=== PATIENT | male | born 1955 | race Caucasian/White ===

== ENCOUNTER 2020-06-26 15:39 | Inpatient (IN) | payer OTHER ==
[2020-06-26] VITALS (22 sets, daily range): BP systolic 46–132; BP diastolic 14–91
[~2020-06-26] VITALS: Ht 180.3 cm; Wt 108.8 kg
--- NOTE | ~2020-06-26 | HC ---
[facility] [place] [address] CONSULTATION Name: ASH DENISE Room #: 218-P ADM IN M.R.#: [id number] Admission: 06/26/20 Attend Phys: Bonifacio Yancey MD Discharge: Date of : 55 Report #: [id number] THIS REPORT FOR: cc: John Hernandez MD, Richard C. MD Al-Absi,Carmen Baig MD ~ DOC #: [id number] Carmen Nath MD DATE OF SERVICE: 06/28/2020 REASON FOR CONSULTATION: Elevated creatinine. REASON FOR PRESENTATION: Shortness of breath. HISTORY OF PRESENT ILLNESS: This is a 64-year-old who has not seen a physician for the last 10 years. He presented to another facility with worsening lower extremity edema, shortness of breath. The patient was found to have AFib with RVR. He was transferred to our facility for further evaluation and management. The patient's laboratory values on 06/26 showed a creatinine of 1.3. The patient received a CT thorax angiogram on 06/27. Creatinine started to go up from 1.3-1.9-2.3. He was found to have a severely reduced ejection fraction. I was consulted to manage his acute kidney injury. PAST MEDICAL HISTORY: He denies any prior medical issues; however, he did not see a doctor for 10 years. PAST SURGICAL HISTORY: Tonsillectomy. FAMILY HISTORY: None per the patient. ALLERGEN: RAGWEED AND CUMIN. MEDICATIONS: None except for occasional Aleve and Advil. REVIEW OF SYSTEMS: GENERAL: No fever or chills. CARDIOVASCULAR: Occasional dyspnea on exertion and lower extremity edema. PULMONARY: No cough, no hemoptysis. GASTROINTESTINAL: No nausea or vomiting. GENITOURINARY: No frequency, no urgency. NEUROLOGICAL: No headache, no dizziness. MUSCULOSKELETAL: Occasional back pain. PHYSICAL EXAMINATION: VITAL SIGNS: Temperature 36.2, pulse rate 71, respiratory rate 18, blood pressure 116/87. [facility] [address] [place] [address] CONSULTATION Name: ASH DENISE Room #: 218-P [facility] IN .R.#: [id number] Admission: 06/26/20 Attend Phys: Bonifacio Yancey MD Discharge: Date of : 55 Report #: [id number] HEAD AND NECK: No jugular venous distention. CHEST: Decreased air entry bilaterally. CARDIOVASCULAR: No rub. ABDOMEN: Soft. EXTREMITIES: Lower extremities, +3 edema. LABORATORY VALUES: White blood cell count 11.8. Sodium 132, BUN is 53, creatinine is 2.3. Troponin is mildly elevated to 0.4. He has a English catheter. ASSESSMENT, IMPRESSION, PLAN: 1. Acute kidney injury in a patient with severe left ventricular dysfunction with cardiomyopathy. Status post CT angiogram. 2. At this point, the patient's creatinine is worsening due to the CT angiogram. I would hold on the cardiac catheterization until his creatinine stabilizes. 3. Given the development of hyponatremia, stop IV fluid. 4. Daily renal function panel. 5. Continue to follow urine output and daily electrolytes. 6. Avoid nephrotoxins. 7. Once his creatinine stabilizes, we might be able to proceed with the cardiac catheterization. 8. At this point, I would not initiate the patient on any angiotensin receptor carlos or angiotensin converting enzyme inhibitors or Aldactone for his heart failure given his acute kidney injury. Carmen Nath MD AIA/TUSHAR/ERNST By: 2134 Carmen Nath MD /nt
--- NOTE | 2020-06-26 16:30 | NUR ---
1630- PATIENT ARRIVED VIA EMS. HE WAS PULLED OVER TO ICU BED AND PLACED ON CARDIAC MONITORING SYSTEM. PHYSICIAN NOTIFIED OF PATIENT ARRIVED. HE WAS [place] HERE ON BIPAP AND TRANSFERED OVER TO OUR BIPAP WITH SAME SETTINGS. HE DENIES PAIN AND IS ALERT AND ORIENTED.
--- NOTE | 2020-06-26 17:28 | NUR ---
DR. STALLINGS HERE, DR. HAWK HERE, DR. GONZALEZ ON HIS WAY. PATIENT IS ALERT AND ORIENTED. PATIENTS AND DAUGHTER IN THE ROOM. HOSPITAL VISITING HOURS AND POLICY REVIEWED. SECURITY CODE PROVIDED TO PATIENTS . PLAN IS TO OBTAIN LOWER EXTREMETY DOPPLERS, TRIAL HIM ON NASAL CANNULA AND OBTAIN A BLOOD GAS, PERFORM EKG, START AMIODARONE GTT, PROVIDE MORE LASIX. MORE ORDERS TO COME AFER DR. GONZALEZ ROUNDS. PATIENT RESPIRATORY RATE 20'S-30'S, HEART RATE 80'S-150'S IN ATRIAL FLUTTER. MAIN PRESENT ON ADMIT WITH CONCENTRATED INES URINE IN BAG.
[2020-06-26 17:44] LABS: HEMATOCRIT 44.4 % (42.0-52.0); HEMOGLOBIN 14.4 gm/dL (14.0-18.0); MCH 28.1 pg (26.0-34.0); MCHC 32.5 g/dL (28.0-37.0); MCV 86.5 fL (80.0-100.0); RBC 5.13 mil/uL (4.50-6.00); WBC 11.8 thou/uL (4.0-11.0)
[2020-06-26 17:52] LABS: CALCIUM 8.1 mg/dL (8.5-10.1); CREATININE 1.3 mg/dL (0.7-1.3); POTASSIUM 4.9 mmol/L (3.5-5.1)
[2020-06-26 17:58] LABS: ALBUMIN 2.7 g/dL (3.4-5.0); TOTAL BILIRUBIN 2.2 mg/dL (0.2-1.0); TOTAL PROTEIN 6.1 g/dL (6.4-8.2)
[2020-06-26 19:54] LABS: URINE BILIRUBIN NEGATIVE (Negative); URINE BLOOD 2+ (Negative); URINE CLARITY CLEAR; URINE COLOR YELLOW; URINE GLUCOSE-RANDOM* NEGATIVE (Negative); URINE KETONES NEGATIVE (Negative); URINE LEUKOCYTES TRACE (Negative); URINE NITRITE NEGATIVE (Negative); URINE PROTEIN (DIPSTICK) 2+ (Negative); URINE SPECIFIC GRAVITY 1.025 (1.005-1.035)
[2020-06-26 20:10] LABS: BE(vivo) -0.8 mmol/L (-2 to +3); HCO3 22.9 mmol/L (22.0-26.0); PCO2 35.5 mmHg (35.0-45.0); PO2 90.6 mmHg (80.0-100.0); pH 7.428 (7.360-7.450); sO2 97.2 % (92.0-98.0)
[2020-06-26 20:12] LABS: HYALINE CASTS 4-10 Moderate /LPF (None Seen); MUCUS >6 Heavy strn/LPF (None Seen)
[2020-06-26 20:13] LABS: CELLULAR CASTS 0-3 Few /LPF (None Seen); COARSE GRANULAR CASTS 4-10 Moderate /LPF (None Seen)
[2020-06-26 20:14] LABS: CRYSTALS None Seen /LPF (None Seen); SQUAMOUS 0-3 Few /LPF (0-3); URINE RBC 3-10 Few /HPF (NONE SEEN)
[2020-06-27] VITALS (19 sets, daily range): BP systolic 83–189; BP diastolic 60–116
--- NOTE | 2020-06-27 00:57 | NUR ---
PT DIRECT ADMIT FROM [place]. A/OX4 WITH FAMILY AT BEDSIDE. AMIO DRIP AT 33ML/HR. HR BETWEEN 93-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 SPOKE TO TRANSMITTER TESTER ABOUT CT ORDER AND CORRECTED ORDER FOR CTA FOR PE PROTOCOL. DR. STALLINGS SAID IT CAN BE DONE IN THE AM. PT CURRENTLY ON 2L/NC. BP ARE STABLE. WILL CONTINUE TO ACCESS.
--- NOTE | 2020-06-27 06:45 | EKG ---
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: ABRAHAM : 1955 Requested By: Delores Park Order Number: [id number] MD: Andrew Angelo Measurements Intervals [place] Rate: 154 P: [place]: QRS: 1 QRSD: 88 T: 85 QT: 342 QTc: 548 Interpretive Statements Atrial fibrillation/flutter Prolonged QT interval Probable RV involvement, suggest recording right precordial leads Baseline wander in lead(s) III No previous ECG available for comparison Electronically Signed On 06-27-2020 6:45:19 CDT by Andrew Angelo [email or web address] <ELECTRONICALLY SIGNED> By: Andrew Angelo MD, [facility] 06/27/20 0645 173 29 Andrew Angelo MD, [facility] /EPI
--- NOTE | 2020-06-27 08:34 | NUR ---
ASSUMED CARE OF PT AT 0700, PT'S FAMILY AT BEDSIDE AT 0820 DR. STALLINGS AT BEDSIDE AT 0830 AND ORDERED BP MEDS AND WANTS FLUIDS KVO BECAUSE HE BELIEVES THE PT IS FLUID OVERLOADED.
--- NOTE | 2020-06-27 12:37 | NUR ---
ASSESSMENT: CM REVIEWED CHART AND MET WITH PATIENT AND HIS AT THE BEDSIDE. PT IS ALERT AND ORIENTED X4. PT WAS TRANSFERED TO [facility] FROM [facility] AFTER BEING SEEN FOR SOB AND WAS FOUND TO BE IN A FIB WITH RVR. PT LIVES AT HOME WITH HIS IN A HOUSE IN [place], [place] PT REPORTS 2 STEPS WITH NO HANDRAIL TO ENTER AND REPORTS ALL HIS NEEDS ARE ON ONE LEVEL. PT DOES HAVE A BASEMENT BUT DOES NOT NEED TO GO DOWN THERE. PT REPORTS NO DME AND STATES HE IS NORMALLY INDEPENDENT WITH ADLS AND AMBULATION. PT IS PATIENT PAY AND IS SELF EMPLOYED PATIENT STATES HE IS HOPING TO HOLD OUT UNTIL HE CAN GET MEDICARE AT AGE 65. PT DOES NOT QUALIFY FOR MEDICAID/DISABILITY AT THIS TIME. PT REPORTS THAT HE DOES NOT CURRENTLY HAVE A PCP BUT STATES HE LAST SAW DR. JANIS GILBERT IN [place] AND WILL GO BACK TO HIM IF NEEDED. CM ALSO PROVIDED PATIENT WITH SAFETY NET CLINIC INFORMATION AND LOCATIONS OF CLINICS. PT REPORTS HE HAS NO PAST HX OF HH OR SNF. CM DISCUSSED ROLE. PT IS HOPEFUL HE WILL HAVE NO NEEDS AT DISCHARGE. PT IS CURRENTLY ON DILT GTT WELL AMINO GTT. PT IS ALSO ON IV ANBX DUE TO LEUKOCYTOSIS. POSSIBLE PLANS OF TRANSFERRING OUT OF THE ICU SOON. CM WILL CONTINUE TO FOLLOW TO ASSIST NEEDED.
[2020-06-27 13:16] LABS: CALCIUM 8.3 mg/dL (8.5-10.1); CREATININE 1.9 mg/dL (0.7-1.3); POTASSIUM 4.3 mmol/L (3.5-5.1)
--- NOTE | 2020-06-27 13:54 | 2DMMODE ---
[facility] [place] [address] 2 D/M-MODE ECHOCARDIOGRAM Name: ASH DENSIE Room #: 218-P ADM IN M.R.#: [id number] Admission: 06/26/20 Attend Phys: Bonifacio Yancey MD Discharge: Date of : 55 Report #: [id number] THIS REPORT FOR: cc: John Hernandez MD, Richard C. MD Santiago, Patrick MD [facility] ~ APPROVED REPORT Study performed: 06/27/2020 13:00:23 EXAM: Comprehensive 2D, Doppler, and color-flow Echocardiogram Patient Location: Bedside Room #: 218 Status: routine BSA: 2.34 HR: 69 bpm BP: 135/90 mmHg Rhythm: Atrial Flutter Other Information Study Quality: Good Indications Short of breath, edema, Aflutter. 2D Dimensions RVDd: 41.01 mm IVSd: 8.86 (7-11mm) LVOT Diam: 20.90 (18-24mm) LVDd: 60.22 mm PWd: 8.27 (7-11mm) LVDs: 52.70 (25-40mm) Left Atrium: 48.12 (27-40mm) Aortic Root: 37.15 mm Volumes Left Atrial Volume (Systole) Single Plane 4CH: 73.31 mL Single Plane 2CH: 81.09 mL LA ESV Index: 35.00 mL/m2 Aortic Valve AoV Peak Michael.: 0.60 m/s AO Peak Gr.: 1.43 mmHg LVOT Max P.87 mmHg LVOT Max V: 0.47 m/s NASH Vmax: 2.68 cm2 [facility] [address] [place] [address] 2 D/M-MODE ECHOCARDIOGRAM Name: ASH DENISE Room #: 218-P [facility] IN [facility].#: [id number] Admission: 06/26/20 Attend Phys: Bonifacio Yancey MD Discharge: Date of : 55 Report #: [id number] Mitral Valve MV Decel. Time: 145.71 ms MV E Max Michael.: 1.09 m/s Pulmonary Valve PV Peak Michael.: 0.45 m/s PV Peak Gr.: 0.82 mmHg Tricuspid Valve TR Peak Michael.: 2.85 m/s RAP Estimate: 15.00 mmHg TR Peak Gr.: 33.00 mmHg PA Pressure: 48.00 mmHg Left Ventricle Left ventricle is mildly dilated. There is normal left ventricular wall thickness. Left ventricular systolic function is severely decreased. LVEF is 25%. This study is not technically sufficient to allow evaluation of the LV diastolic function due to atrial flutter. Right Ventricle Right ventricle is at the upper limits of normal. Right ventricle is hypokinetic. Atria Left atrium is moderately dilated. Right atrium is mildly dilated. Aortic Valve The aortic valve is normal in structure. Trace aortic regurgitation. There is no aortic valvular stenosis. Mitral Valve The mitral valve is normal in structure. Moderate mitral regurgitation. Tricuspid Valve The tricuspid valve is normal in structure. Moderate tricuspid regurgitation. Estimated PAP is 45mmHg. Pulmonic Valve The pulmonary valve is normal in structure. Trace pulmonic regurgitation. Great Vessels The aortic root is normal in size. IVC is dilated and collapses [facility] [address] [place] [address] 2 D/M-MODE ECHOCARDIOGRAM Name: ASH DENISE Room #: 218-P [facility] IN .R.#: [id number] Admission: 06/26/20 Attend Phys: Bonifacio Yancey MD Discharge: Date of : 55 Report #: [id number] <50% with inspiration. Pericardium There is no pericardial effusion. Right plerual effusion noted. <Conclusion> Tracing suggestive of atrial flutter Left ventricle mildly dilated Normal left ventricular wall thickness Global hypokinesis ejection fraction 25% Right ventricle size in the upper limits of normal with moderate hypokinesis Moderate biatrial enlargement Color-flow Doppler study was performed of the aortic/mitral/tricuspid/pulmonary valve Trace aortic valve insufficiency Moderate/eccentric mitral valve insufficiency Moderate tricuspid valve insufficiency Pulmonary systolic pressure estimated 45 mmHg No pericardial effusion Normal aortic root size. IVC mildly dilated, minimally responsive to respiration <ELECTRONICALLY SIGNED> By: Andrew Angelo MD, [facility] 06/27/20 1354 1354 1354 Andrew Angelo MD, [facility] /INF
--- NOTE | 2020-06-27 15:03 | NUR ---
ADV. DIR. CONSULT [id number] WAS COMPLETED BY THIS LIMOUSINE RENTAL CLERK AND PLACED IN HIS CHART.
--- NOTE | 2020-06-27 16:02 | EKG ---
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: FSCHWALBE : 1955 Requested By: Delores Park Order Number: [id number] MD: Andrew Angelo Measurements Intervals [place] Rate: 55 P: [place]: QRS: -22 QRSD: 119 T: 85 QT: 594 QTc: 569 Interpretive Statements Atrial flutter Nonspecific intraventricular conduction delay Baseline wander in lead(s) V1 Compared to ECG 06/26/2020 17:30:37 Atrial fibrillation no longer present Prolonged QT interval no longer present Electronically Signed On 06-27-2020 16:02:26 CDT by Andrew Angelo [email or web address] <ELECTRONICALLY SIGNED> By: Andrew Angelo MD, [facility] 06/27/20 1602 1554 1554 Andrew Angelo MD, [facility] /EPI
--- NOTE | 2020-06-27 19:47 | NUR ---
PT TRANSFERED TO THE UNIT FROM THE ICU VIA WHEELCHAIR. PT ORIENTED TO ROOM AND BEDSPACE. ASSESSMENT CHARTED - PT WITH CARDIZEM AND AMMIO INSITU. PT JONNY LUNCH WELL WITH NO CO'S OF NAUSEA. PT WITH CO'S OF FEELING SOB @ 1430 - VSS AT THIS TIME 81/60 RESP 24 HEART RATE IN THE 50'S CARDIZEM TURNED OFF - O2 PLACED ON PATIENT AT THIS TIME FOR COMFORT - RA SAT 97%. PATIENT WANTING TO SIT IN THE CHAIR STATED HE CAN BREATH BETTER IN THE CHAIR - STBY ASSIST UP TO THE CHAIR. CARDIOLOGY CIGAR MAKING MACHINE OPERATOR NOTIEFIED - ORDER FOR EKG / CHEST OBTAINED - EKG WITH NO CHANGE - NS STARTED PER APR - PT CONTINUING TO COMAPLAIN OF SOB CIGAR MAKING MACHINE OPERATOR NOTIFIED AND ORDERS FOR ABG AND TROPONIN OBTAIN - RT UNABLE TO GET ABG'S TROPONIN 0.26. 1455 BP 82/55 HR 49 SAT 97% RR 24. CONTINUE TO MONITOR HR BY 1710 HR UP INTO THE LOW 60'S BP 91/66. PT CONTINUES TO COMPLAIN OF SOB - DR STALLINGS CALLED AND UPDATED ON PATIENT STATUS AND ORDERS 40 MGS ON IV LASIX FOR PATIENT. PT RESTING COMFORTABLY AT THE PRESENT TIME. EYES CLOSED AND NO FURTHER CO'S OF SOB. AND DAUGHTER AT THE BEDSIDE, EDUCATION INFORMATION WRITTEN AND VERBAL INFORMATION GIVEN IN REGARDS TO CHF CAUSES AND TREATMENT. PT WITH NO CO'S AT THE PRESENT TIME. CHEST XRAY ASPER REUSLTS, CONTINUES TO REST COMFORTABLY.
[2020-06-28 03:06] LABS: HAV IgM AB (ANTI-HAV IgM) Negative (Negative); HEPATITIS B SURFACE AG Negative (Negative); HEPATITIS C VIRUS AB <0.1 (0.0-0.9)
[2020-06-28 04:08] VITALS: BP 116/87
[2020-06-28 04:36] LABS: CALCIUM 7.8 mg/dL (8.5-10.1); CREATININE 2.3 mg/dL (0.7-1.3); POTASSIUM 4.2 mmol/L (3.5-5.1); TROPONIN-I 0.22 ng/mL (<0.06)
[2020-06-28 07:45] VITALS: BP 133/90
[2020-06-28 11:20] VITALS: BP 116/77
--- NOTE | 2020-06-28 11:49 | NUR ---
ON-GOING ASSESSMENT: CM REVIEWED CHART. PT HAS AMBER DUE TO POST CONTRASAT EXPOSURE. PT IS NEEDING CARDIAC CATH BUT ON HOLD UNTIL HIS EDITOR NEWSPAPER IS STABLE. POSSIBLE PLANS FOR CATH ON WEDNESDAY PENDING EDITOR NEWSPAPER. [facility] IS ALSO GOING TO RE-SCREEN PATIENT FOR DISABILITY HIS REPORTED EF MAY QUALIFY HIM. NO PLANS FOR WEEKEND DISCHARGE. CM WILL CONTINUE TO FOLLOW TO ASSIST NEEDED.
[2020-06-28 15:30] VITALS: BP 100/58
--- NOTE | 2020-06-28 16:45 | NUR ---
ASSESSMENT CHARTED - MEDS PER MAR - NO CO'S OF PAIN OR NAUSEA. JONNY DIET AND FLUIDS. PT SHOWERED THIS AM WITH SUPERVISION - SLIGHT SOB NOTED POST ACTIVITY - PATIENT UP TO THE CHAIR AND AMBULATING. STATES HE FEELS MUCH BETTERTHIS TODAY. MAIN CATH D/C'D PRIOR TO SHOWER. PT STATES HE HAS VOIDED X SINCE REMOVAL - STATES HE FEELS HE EMPTIED BLADDER EACH TIME. FAMILY INTO VISIT - NO CO'S AT THE PRESENT TIME.
[2020-06-28 19:04] VITALS: BP 102/73
--- NOTE | 2020-06-29 04:30 | NUR ---
PT RESTING QUIETLY IN ROOM THRU THE NOC, VSS, HR AFIB RATE CONTROLLED, NO C/O PAIN, STATES HE FEELS SO MUCH BETTER AND HOPES TO GO HOME SOON, WILL CON'T TO MONITOR PER PPOC.
[2020-06-29 04:45] VITALS: BP 128/78
[2020-06-29 06:20] LABS: ALBUMIN 2.3 g/dL (3.4-5.0); CALCIUM 7.9 mg/dL (8.5-10.1); CREATININE 1.8 mg/dL (0.7-1.3); PHOSPHORUS 3.1 mg/dL (2.5-4.9); POTASSIUM 3.6 mmol/L (3.5-5.1)
[2020-06-29 08:00] VITALS: BP 100/76
[2020-06-29 08:30] VITALS: BP 85/56
[2020-06-29 12:18] VITALS: BP 114/63
[2020-06-29 16:00] VITALS: BP 100/74
--- NOTE | 2020-06-29 17:51 | NUR ---
PATIENT WILL HAVE PROCEDURE ON WEDNESDAY PER NOTES. PT REMAINS ALERT ORIENTED X4. HE HAS NOT VOICED COMPLAIN OF PAIN AT THIS TIME. WILL CONT WITH PLAN OF CARE.
[2020-06-29 20:40] VITALS: BP 91/66
[2020-06-30] VITALS: BP 136/85
[2020-06-30 04:48] LABS: ALBUMIN 2.1 g/dL (3.4-5.0); CALCIUM 8.1 mg/dL (8.5-10.1); CREATININE 1.6 mg/dL (0.7-1.3); PHOSPHORUS 3.6 mg/dL (2.5-4.9); POTASSIUM 3.8 mmol/L (3.5-5.1)
[2020-06-30 05:00] VITALS: BP 135/83
--- NOTE | 2020-06-30 05:19 | NUR ---
ASSUME CARE 1900. PT/VITALS STABLE. BP RUNS SOFT. DENIES ANY PAIN. GOOD ENDURANCE TO ACTIVITY. ASSESSMENT CHARTED. PROGRESSING WELL WITH POC. AFIB ON MONITOR WITH HR CONTROLLED IN 80s. PLAN IS TO DIURESE PT/ MONITOR AND MANAGE RENAL FUNCTION, AND POSSIBILITY OF CARDIAC CATH ON WEDNESDAY. NO DISTRESS NOTED THROUGH THE NIGHT. ADEQUATE URINE OUTPUT. WILL CONTINUE TO MONITOR AND FOLLOW WITH POC
[2020-06-30 08:00] VITALS: BP 116/86
[2020-06-30 12:37] VITALS: BP 107/70
[2020-06-30 19:41] VITALS: BP 111/94
[2020-07-01] VITALS (15 sets, daily range): BP systolic 112–127; BP diastolic 72–95
--- NOTE | 2020-07-01 04:33 | NUR ---
A/O X 4.DENIES PAIN AND SOB.NPO SINCE MIDNIGHT FOR A POSSIBLE CATH TODAY.MONITOR SHOWS AFIB.POC CONTINUED.
[2020-07-01 04:49] LABS: ALBUMIN 2.3 g/dL (3.4-5.0); CALCIUM 8.2 mg/dL (8.5-10.1); CREATININE 1.5 mg/dL (0.7-1.3); PHOSPHORUS 4.1 mg/dL (2.5-4.9); POTASSIUM 3.5 mmol/L (3.5-5.1)
[2020-07-01 10:00] LABS: BE(vivo) 6.4 mmol/L (-2 to +3); HCO3 32.8 mmol/L (22.0-26.0); PCO2 53.3 mmHg (35.0-45.0); PO2 91.2 mmHg (80.0-100.0); pH 7.407 (7.360-7.450); sO2 96.9 % (92.0-98.0)
[2020-07-01 10:02] LABS: BE(vivo) 6.8 mmol/L (-2 to +3); HCO3 32.4 mmol/L (22.0-26.0); PCO2 VENOUS 49.4 mmHg (41.0-51.0)
--- NOTE | 2020-07-01 12:13 | NUR ---
ASSUMED CARE PT 06/30/20 SHIFT CHANGE. ASSESSMETNS CHARTED.MEDS GIVEN VSS. NO C/O CP/SOB. ROOM AIR. PT UP AD GARRICK JONNY WELL. UOP ADEQUATE. QUESTIONS ANSWERED ABOUT PROCEDURE. CREAT STABLE REFER TO NEPHRO NOTE. CONT POC. REPORT PASSED TO NOC RN.
--- NOTE | 2020-07-01 13:22 | CATHLAB ---
[facility] [place] [address] INVASIVE PROCEDURE REPORT Name: ASH DENISE Room #: 218-P ADM IN M.R.#: [id number] Admission: 06/26/20 Attend Phys: Bonifacio Yancey MD Discharge: Date of : 55 Report #: [id number] THIS REPORT FOR: cc: John Hernandez MD, Richard C. MD Park, Jin S. MD ~ APPROVED REPORT Study performed: 07/01/2020 08:50:55 Patient Details Patient Status: In-Patient Room #: The patient is a 64 year-old male Event Personnel Ellis Aranda Car Detailer, Theo Russell RN RN, Paulette Carter RTR, RECORDS AND TAPE RECORDINGS ENGINEER Monitor, Jesica Meyer RTR Scrub Procedures Performed Art Access - R femoral artery* Khris Access - R femoral vein Right and Left Heart Cath w/or w/o Coronarie [id number] [facility] 24333 Initial Mod Sed Same Phys/QHP Gr5y [id number] Hemostasis with Manual pressure 88503 Mod Sed Same Phys/QHP Ea 858566 Indication CHF Current Status: , Dyspnea, Cardiomyopathy, The patient presented with acute CHF, diagnosed with cardiomyopathy and minimal troponin elevation. Risk Factors Hypercholesterolemia, HypertensionRenal Failure Procedure Narrative The Right Groin^ was infiltrated with 1% Lidocaine subcutaneous anesthesia. A PINNACLE 4FR Sheath #[id number] sheath was inserted into the RFA. Coronary angiography was performed using coronary diagnostic catheters. The right coronary system was accessed and visualized with a 5FR JR 4 #[id number] catheter. The left coronary system was accessed and visualized with a 5FR JL5 #[id number] catheter. The left ventricle was accessed and visualized with a 5FR JR 4 #[id number] catheter. Left ventricular/Aortic Valve gradient assessed via catheter pullback. Hemostasis was obtained with manual pressure following sheath removal without any complications. The patient tolerated the procedure well and there were no complications associated with the procedure. There [facility] [place] [address] INVASIVE PROCEDURE REPORT Name: ASH DENISE Room #: 218-P [facility] IN .R.#: [id number] Admission: 06/26/20 Attend Phys: Bonifacio Yancey MD Discharge: Date of : 55 Report #: [id number] was no hematoma. 4F sheath exchanged for 5F sheath. Intraoperative Conscious Sedation Sedation start time: 09:39 Case end Time: 10:21 Fentanyl 50 mcg Versed 1 mg Fluoro Time: 3.50 minutes Dose: DAP 9602.10 cGycm2 1061 mGy Contrast Type and Amount: Visipaque 50 ml Coronary Angiography The patient's coronary anatomy is co- dominant. Diagnostic Cath Left Main The left main artery is a large-caliber vessel, patent with no flow-limiting lesions. The region involving the distal LM segment and the proximal segments of the LAD and left circumflex artery appear ectatic. LAD This is a moderate-sized caliber vessel, traverses the anterior wall and wraps around the apex. There appears to be minimal plaquing in the midsegment. Diagonal 1 This is a small to moderate-sized caliber vessel, patent with no flow-limiting lesions. Diagonal 2 This is a small to moderate-sized caliber vessel, patent with no flow-limiting lesions. Circumflex The left circumflex artery is a moderate-sized caliber vessel, codominant. There is minimal plaquing noted in the midsegment. OM1 There is a moderate-sized caliber vessel, patent with no flow-limiting lesions. OM2 There is a moderate-sized caliber vessel, patent with no flow-limiting lesions. Right Coronary The RCA is a moderate-sized caliber vessel, with minimal plaquing in the midsegment. R PDA There is a moderate-sized caliber vessel, patent with no flow-limiting lesions. Left Ventriculography Left Ventriculography was not performed. Ejection Fraction was 25-30% based off patient's Echocardiogram. An LVEDP was measured and there is no gradient across the outflow tract. Hemodynamics The right atrial mean pressure is 13 mmHg. The right ventricular pressure is 36/10 mmHg. The pulmonary artery pressure is 34/[address] [address] INVASIVE PROCEDURE REPORT Name: ASH DENISE Room #: 218-P [facility] IN M.R.#: [id number] Admission: 06/26/20 Attend Phys: Bonifacio Yancey MD Discharge: Date of : 55 Report #: [id number] with a mean of 26 mmHg. The mean pulmonary capillary wedge pressure is 16 mmHg. The aortic pressure is 109/78 mmHg with a mean of 88 mmHg. The left ventricular pressure is 101/10 mmHg with a mean of mmHg. The left ventricular end diastolic pressure is 16 mmHg. PaO2 saturation is 68.30 %. Arterial saturation is 96.90 %. The cardiac output using the Jazmine method is 5.21 L/min. The cardiac index using the Jazmine method is 2.23 L/min/m2. Conclusion 1. There is minimal plaquing noted in the epicardial vessels. 2. There is severe, nonischemic cardiomyopathy. 3. Right-sided cardiac chamber measurements as described. 4. Recommend guideline directed medical therapy. <ELECTRONICALLY SIGNED> By: Ellis Aranda MD 07/01/20 1322 132 132 Ellis Aranda MD /INF
--- NOTE | 2020-07-01 19:42 | NUR ---
PT IS AXOX4, PLEASANT. PT NPO THIS AM FOR CARDIAC CATH. PT AND DTR AT THE BEDSIDE. VSS, AFEBRILE, AFIB ON MONITOR. CARDIAC CATH NO INTERVENTIONS; SITE C/D/I, NO HEMATOMA. BEDREST COMPLETE. POC IS TO CONTINUE IV ABX THERAPY, MONITOR SITE. RX INTERVENTIONS FOR AFIB AT THIS TIME. LOW FALL PRECAUTIONS IN PLACE. NO CONCERNS AT THIS TIME. PT PROGRESSING TOWARDS D/C GOALS.
[2020-07-02 04:46] VITALS: BP 139/85
[2020-07-02 04:51] LABS: HEMOGLOBIN 14.7 gm/dL (14.0-18.0); MCH 28.3 pg (26.0-34.0); MCHC 33.3 g/dL (28.0-37.0); RBC 5.18 mil/uL (4.50-6.00); RDW 14.6 % (10.5-14.5); WBC 11.1 thou/uL (4.0-11.0)
[2020-07-02 05:19] LABS: ALBUMIN 2.2 g/dL (3.4-5.0); CALCIUM 8.4 mg/dL (8.5-10.1); CREATININE 1.4 mg/dL (0.7-1.3); PHOSPHORUS 3.4 mg/dL (2.5-4.9); POTASSIUM 3.3 mmol/L (3.5-5.1)
--- NOTE | 2020-07-02 05:29 | NUR ---
OFF BEDREST.UP INDEPENDENTLY.RIGHT GROIN C/D/I.MONITOR SHOWS AFIB.POC CONTINUED.
[2020-07-02 07:58] VITALS: BP 142/92
--- NOTE | 2020-07-02 11:07 | NUR ---
Received awake on bed. Due medications given as prescribed, able to swallow meds w/o difficulty. On room air. Vital signs stable. On telemetry; no complains and signs of chest pain, crushing sensation and heaviness. Assisted in ADLs. On heart healthy diet- tolerating well; no nausea, no vomiting and no abdominal pain noted. Continent of bowel and bladder, using urinal and able to go to the toilet independently; output measured and recorded accordingly. With at bedside, update given. With NS at KVO infusing well at R FA; with SL at L AC. S/P cath 07/01, R groin dressing C/D/I. Possible discharge today, a/w physician's rounds. Able to walk in the hallway with . Pt seen and examined by Dr Donovan today, asking if pt will be discharged, informed him that still a/w Dr Simons's orders, as per Dr Donovan- he will talk to Dr Simons re: discharge. CM updated re: this as well. To continue monitoring patient.
[2020-07-02 11:26] VITALS: BP 123/61
[2020-07-02] MEDS ORDERED: ELIQUIS5 MG PO (11:50)
[2020-07-02] MEDS ORDERED: DOXYCYCLINE HYC50 MG PO (11:50)
[2020-07-02] MEDS ORDERED: COREG6.25 MG PO (11:51)
[2020-07-02] MEDS ORDERED: DEMADEX20 MG PO (11:51)
[2020-07-02 11:58] VITALS: BP 123/61
== END 2020-07-02 13:30 | disposition home or self-care (01) | DRG 871 ==
LOC: 2N 15:39 → ICU 17:05 → 2N 06-27 12:44
PROVIDERS: Hospitalist; Internal Medicine Cardiovascular Disease; Internal Medicine Pulmonary Disease; ADMIT Hospitalist; ATTEND Hospitalist
DX: A41.9 Sepsis, unspecified organism (principal); J96.01 Acute respiratory failure with hypoxia; I42.8 Other cardiomyopathies; N17.9 Acute kidney failure, unspecified; E87.1 Hypo-osmolality and hyponatremia; I48.92 Unspecified atrial flutter; I48.20 Chronic atrial fibrillation, unspecified; N39.0 Urinary tract infection, site not specified; D72.829 Elevated white blood cell count, unspecified; R74.01 Elevation of levels of liver transaminase levels; Z20.822 Contact with and (suspected) exposure to COVID-19; K76.0 Fatty (change of) liver, not elsewhere classified; T50.8X5A Adverse effect of diagnostic agents, initial encounter; Z82.49 Family history of ischemic heart disease and other diseases of the circulatory system; Z88.8 Allergy status to other drugs, medicaments and biological substances; Y92.89 Other specified places as the place of occurrence of the external cause
CPT/HCPCS: 10078; 10081; 10204